=== PATIENT | male | born 1980 | race Caucasian/White ===

== ENCOUNTER 2021-11-22 08:30 | Outpatient (CLI) | payer SELFPAY ==
[2021-11-22 08:55] LABS: Hematocrit 46.3 % (40-54); Hemoglobin 15.9 g/dL (13.0-16.5); Mean Corp Hgb Conc 34.3 g/dL (32-36); Mean Corpuscular Hgb 28.7 pg (27.0-32.0); Mean Corpuscular Volume 83.6 fL (80-94); Platelet Count 209 K/mm3 (150-450); RBC Distribution Width CV 11.8 % (11.6-14.6); RBC Distribution Width SD 35.7 fl (35.1-43.9); Red Blood Count 5.54 M/mm3 (4.6-6.2); White Blood Count 4.2 K/mm3 (4.4-11.0)
[2021-11-22 09:21] LABS: Anion Gap 2 (5-15); BUN 13 mg/dL (7-18); BUN/Creat Ratio 15.1 RATIO (10-20); Calcium,Total 8.8 mg/dL (8.5-10.1); Chloride 107 mmol/L (98-107); Creatinine, Serum 0.86 mg/dL (0.70-1.30); EST Glomerular Filtration Rate 104 mL/min (>60); Est Glom Filt Rate - Afr Amer 126 mL/min (>60); Glucose 90 mg/dL (74-106); PSA,Total- Diagnostic 1.43 ng/mL (0.0-4.0); Potassium 3.9 mmol/L (3.5-5.1); Sodium Level 139 mmol/L (136-145)
== END 2021-11-22 23:59 | disposition short-term general hospital (02) ==
PROVIDERS: PCP Family Medicine; Referring Provider Urology; Visit Provider Urology
DX: N41.1 Chronic prostatitis (principal)
CPT/HCPCS: 36415; 80048; 84153; 85027

== ENCOUNTER → 2022-08-10 | Outpatient (CLI) | payer SELFPAY ==
--- NOTE | 2022-08-10 15:52 | CT_ITS ---
STUDY: CT ABDOMEN AND PELVIS WITH CONTRAST REASON FOR EXAM: Male, 41 years old. Dysuria, pelvic pain RADIATION DOSAGE (If Supplied By Facility): CTDIvol = ( 15.12 ) mGy, DLP = ( 1081.74 ) mGycm TECHNIQUE: Transaxial images were obtained from the dome of the diaphragm to the symphysis pubis without oral contrast. IV 100mL Isovue-370 was administered. Sagittal and coronal images were reconstructed. Individualized dose optimization techniques were used for this CT. COMPARISON: None. FINDINGS: The visualized lung bases are unremarkable. The visualized portions of the heart are within normal limits. Normal liver. Normal gallbladder and extrahepatic biliary system. Normal spleen. Normal pancreas. Normal bilateral adrenal glands. Normal right kidney. Normal left kidney. Normal visualized stomach. Normal small intestine. Normal colon. The appendix is visualized and appears normal. Appendix seen on coronal recon images 59 through 66 Normal abdominal aorta. Normal inferior vena cava. Scattered subcentimeter in short axis dimension mesenteric and retroperitoneal lymph nodes suggesting mesenteric lymphadenitis. Normal urinary bladder. Normal visualized prostate gland. Normal abdominal wall. Normal osseous structures. CT/Abdomen/Pelvis W IV Cont ONLY IMPRESSION: No obstructive uropathy or suspicious solid renal lesion. No free peritoneal fluid, air, or suspicious adenopathy, normal appendix visualized. Electronically Signed: Ger Sorensen MD at 9:12 EDT ,
== END | disposition home or self-care (01) ==
LOC: CT 15:38
PROVIDERS: PCP Family Medicine; Referring Provider Urology; Visit Provider Urology
DX: N41.1 Chronic prostatitis (principal)
CPT/HCPCS: 74177; Q9967; A4216

== ENCOUNTER → 2022-10-02 | Outpatient (CLI) | payer SELFPAY ==
[2022-10-02 16:31] LABS: PSA,Total - Annual Screen 1.52 ng/mL (0.00-4.00)
== END | disposition home or self-care (01) ==
PROVIDERS: PCP Family Medicine; Visit Provider Urology
DX: Z12.5 Encounter for screening for malignant neoplasm of prostate (principal)
CPT/HCPCS: 36415; 84153; G0103

== ENCOUNTER 2022-10-31 07:38 | Day surgery (SDC) | payer SELFPAY ==
[2022-10-31] VITALS (7 sets, daily range): BP systolic 114–122; BP diastolic 73–98; PULSE 71–82; RESP 16–17; TEMP 36.2–36.7; O2SAT 95–99; BMI 31.0
--- NOTE | 2022-10-31 07:49 | PCM.HP.BLA ---
History and Physical Date of Admission: 10/31/22 Chief Complaint: Rectal pain Is patient in pain?: Yes Allergies No Known Allergies Allergy (Unverified 10/09/22 13:55) Medications Unobtainable? 10/09/22 [History Confirmed 10/09/22] [facility] Family History?(Updated 10/09/22 @ 13:54 by Cara Simms) Father Colon cancer HPI HPI Surgical H&P: Yes HPI: Patient is a 41 y/o M I am seeing for rectal pain. Patient states he has been treated for chronic prostatitis for 2 years. Patient has been on multiple rounds of antibiotics. He has been evaluated by Dr. Becker who has recommended the patient seek a second opinon as he has tried the patient on Flomax, PSA level has been normal. A CT scan of the ab/pel was obtained on 08/10/22 at [facility] which was essentially normal. A urinalysis was completed and was negative for a UTI. A cystoscopy was not completed as the CT scan was normal. Patient was switched from Flomax to Uroxatral 10 mg at bedtime. Patient was recommended to have a colonoscopy by urology and PCP. Patient describes a sensation of sitting on an egg. When he is laying down or leaning back his rectal area seems to be relieved of the pain. Patient denies any external hemorrhoids. He denies any melena or bright red blood per rectum. He denies seeing any purulent material. He notes normal bowel habits. No constipation or diarrhea noted. He has no issues with urination. He notes his family in his mid 50's of colon cancer. He has never had a colonoscopy previously. He denies any cardiac or pulmonary history. ROS General General: No weight change, appetite, fatigue, colon cancer, breast cancer or weakness HEENT HEENT: No difficulty swallowing, eye injury, eye surgery, swollen glands or hoarseness Endo Endocrine: No thyroid disease, diabetes mellitus, thyroid cancer, Hair loss, heat intolerance or cold intolerance Skin Skin: No rash or changing moles Breast Breast: No left breast lump, right breast lump, nipple discharge, breast pain, abnormal mammogram, abnormal US or breast enlargement Musc Musculoskeletal: No back problems, arthritis, rheumatoid arthritis, gout or joint pain Cardio Cardiovascular: No murmur, pacemaker, heart disease, atrial fibrillation, high blood pressure, heart attack, heart stent, palpitations, shortness of breat with exertion or chest pain Psych Psychiatric: No depression, anxiety or hearing voices Resp Respiratory: No shortness of breath, No sleep apnea, No cough, No COPD, No asthma, No emphysema and No wheezing Gastro Gastrointestinal: No abdominal pain, No nausea or vomiting, No diarrhea, No constipation, No blood in stool, No acid reflux, No hemorrhoids, No ulcers, No gallbladder problem and No black,tarry stools Robert Hematologic: No blood thinners, No blood disorders, No bleeding, No anemia and No blood clots Neuro Neurologic: No system reviewed and no additional complaints, except as documented, No as per HPI, No abnormal gait, No abnormal hearing, No abnormal movements, No abnormal speech, No behavioral changes, No burning sensations, No confusion, No convulsions, No disequilibrium, No dizziness, No localized weakness, No frequent falls, No headache(s), No lack of coordination, No loss of vision, No memory loss, No numbness, No other visual disturbances, No radicular pain, No restless legs, No sensory deficit, No syncope, No tingling, No tremor(s), No weakness and No other Exam Const General: cooperative, healthy appearing, comfortable and no acute distress [facility] Head: normal to inspection Eyes General: appearance normal, both eyes and all related structures Neck Neck: normal visual inspection Neck mass: No Resp Effort & Inspection: normal respiratory effort Auscultation: clear to auscultation bilaterally Cardio Rate: regular rate Rhythm: regular rhythm GI Inspection: normal to inspection Palpation: soft and nontender Auscultation: normal bowel sounds Rectal Exam: normal sphincter tone, No hemorrhoids, No mass and No tenderness Musc Cervical Spine: normal cervical lordosis Skin General: no rashes or lesions noted Neuro General: no focal motor deficits Extrem General: normal to inspection Psych Appearance: grossly normal Affect: normal affect Assessment and Plan Assessment and Plan (1) Chronic prostatitis: ?Status:?Chronic ?Comment: Was diagnosed 2 years ago and has had multiple rounds of antibiotics. He is currently taking antibiotics. ?Plan: Following with urology (2) Family history of colon cancer: ?Status:?Acute ?Plan: Dr. Barrera will plan to perform a colonoscopy with possible biopsies under MAC. Procedure details, risks and benefits have been explained. Patient has had the opportunity to ask and have questions answered. Patient verbally understands and agrees with the plan. Patient and his are understanding that a colonoscopy may or may not provide answers to the patient's current symptoms. Coding Level of Care Code Off vis,new,level 3 Diagnoses Chronic prostatitis? N41.1 Family history of colon cancer? Z80.0 10/11/22 8802 <Electronically signed by Jennie NIETO PA-C> I have examined the patient and the H&P has been reviewed. There are no clinical changes since date of exam. Efra Barrera M.D., F.A.C.S.
--- NOTE | 2022-10-31 09:07 | OP.COLON_ITS ---
Patient Name: Rolo Garcia Procedure Date: 10/31/2022 8:36 AM Date of : 1980 Age: 41 Procedure: Colonoscopy Indications: Rectal pain Providers: Efra Barrera MD Referring MD: Efra Barrera MD Medicines: See the Anesthesia note for documentation of the administered medications Patient Profile: Last Colonoscopy: none. The patient's first colonoscopy is today. Complications: No immediate complications. Procedure: Pre-Anesthesia Assessment: - Prior to the procedure, a History and Physical was performed, and patient medications and allergies were reviewed. The patient's tolerance of previous anesthesia was also reviewed. The risks and benefits of the procedure and the sedation options and risks were discussed with the patient. All questions were answered, and informed consent was obtained. Prior Anticoagulants: The patient has taken no previous anticoagulant or antiplatelet agents. ASA Grade Assessment: II - A patient with mild systemic disease. After reviewing the risks and benefits, the patient was deemed in satisfactory condition to undergo the procedure. After I obtained informed consent, the scope was passed under direct vision. Throughout the procedure, the patient's blood pressure, pulse, and oxygen saturations were monitored continuously. The pediatric colonoscope was introduced through the anus and advanced to the cecum, identified by appendiceal orifice and ileocecal valve. The colonoscopy was performed without difficulty. The patient tolerated the procedure well. The quality of the bowel preparation was good. The ileocecal valve and the appendiceal orifice were photographed. Scope In: 8:48:39 AM Scope Withdrawal Time 0 hours 9 minutes 28 seconds Scope Out: 9:02:27 AM Total Procedure Duration Time 0 hours 13 minutes 48 seconds Findings: The digital rectal exam findings include non-thrombosed internal hemorrhoids, internal hemorrhoids that prolapse with straining, but spontaneously regress to the resting position (Grade II) and enlarged prostate. The colon (entire examined portion) appeared normal. Impression: - Non-thrombosed internal hemorrhoids, internal hemorrhoids that prolapse with straining, but spontaneously regress to the resting position (Grade II) and enlarged prostate found on digital rectal exam. - The entire examined colon is normal. - No specimens collected. Recommendation: - Discharge patient to home. - Resume previous diet. - Continue present medications. - Repeat colonoscopy in 10 years for screening purposes. - Return to my office PRN to discuss possible surgical treatment of internal hemorrhoids Procedure Code(s): --- Professional --- 17348, Colonoscopy, flexible; diagnostic, including collection of specimen(s) by brushing or washing, when performed (separate procedure) Diagnosis Code(s): --- Professional --- K64.1, Second degree hemorrhoids K62.89, Other specified diseases of anus and rectum N40.0, Benign prostatic hyperplasia without lower urinary tract symptoms CPT copyright 2017 [employer]. All rights reserved. The codes documented in this report are preliminary and upon reconsignment clerk review may be revised to meet current compliance requirements. Efra Barrera MD 10/31/2022 9:07:09 AM This report has been signed electronically. Number of Addenda: 0 Note Initiated On: 10/31/2022 8:36 AM
--- NOTE | 2022-10-31 09:07 | OP.CCLET_ITS ---
10/31/2022 Kaden Trevino Re : Colonoscopy procedure for Rolo Garcia Dear Belinda This procedure was performed on Monday, October 31, 2022. My impressions and recommendations are as follows: Impressions : - Non-thrombosed internal hemorrhoids, internal hemorrhoids that prolapse with straining, but spontaneously regress to the resting position (Grade II) and enlarged prostate found on digital rectal exam. - The entire examined colon is normal. - No specimens collected. Recommendations : - Discharge patient to home. - Resume previous diet. - Continue present medications. - Repeat colonoscopy in 10 years for screening purposes. - Return to my office PRN to discuss possible surgical treatment of internal hemorrhoids My findings are described in the full procedure note, which is enclosed. If I can be of further assistance, please feel free to contact me at Doctor phone number(s): Work: . Sincerely, Efra Barrera MD 10/31/2022 9:07:09 AM This report has been signed electronically.
== END 2022-10-31 10:01 | disposition home or self-care (01) ==
LOC: EN 07:40 → AC 07:44
PROVIDERS: PCP Family Medicine; Referring Provider Family Medicine; Visit Provider Surgery
PROC: 0DJD8ZZ Inspection of Lower Intestinal Tract, Via Natural or Artificial Opening Endoscopic (ICD-10-PCS; CPT 45378; principal; 2022-10-31 08:25)
DX: K64.1 Second degree hemorrhoids (principal); K62.89 Other specified diseases of anus and rectum; N40.0 Benign prostatic hyperplasia without lower urinary tract symptoms; N41.1 Chronic prostatitis; Z79.2 Long term (current) use of antibiotics; Z80.0 Family history of malignant neoplasm of digestive organs
CPT/HCPCS: 45378; J7120; J2405